=== PATIENT | female | born 1950 | race Caucasian/White ===

== ENCOUNTER 2020-09-07 15:02 | Emergency (ER) | payer MEDICARE, OTHER ==
[2020-09-07 16:20] LABS: BASOPHIL 0.2 % (0-2); EOSINOPHIL 0.6 % (0-7); HCT 39.8 % (37.0-47.0); HGB 13.2 g/dl (12.5-16.0); MCH 30.8 pg (25.0-31.0); MCHC 33.2 g/dL (32.0-36.0); MONOCYTE 4.8 % (0-12); MPV 9.4 fL (6.0-9.5); NEUTROPHIL 87.9 % (41-80); NRBC 0; PLT 144 K/uL (150-400); RBC 4.28 M/uL (4.20-5.40); RDW 12.7 % (11.5-14.0); WBC 11.9 K/uL (4.0-10.5)
[2020-09-07 16:34] LABS: INR 1.13 (0.9-1.2); PROTHROMBIN TIME 13.8 SECONDS (11.4-13.6); PTT 22.5 SECONDS (22.2-34.7)
[2020-09-07 16:36] LABS: D-DIMER 0.56 ug/mLFEU (0.00-0.41)
[2020-09-07 16:38] LABS: ALBUMIN 3.7 g/dL (3.4-5.0); BILIRUBIN - TOTAL 0.5 mg/dL (0.2-1.0); BUN/CREAT RATIO (CALC) 36.2 RATIO; C-REACTIVE PROTEIN 0.6 mg/dL (<=0.90); CREATININE 0.47 mg/dL (0.51-0.95); GLOBULIN (CALCULATION) 4.2 g/dL; POTASSIUM 3.9 mmol/L (3.5-5.1); TOTAL PROTEIN 7.9 g/dL (6.4-8.2)
[2020-09-07 16:42] LABS: LACTIC ACID 0.8 mmol/L (0.4-1.9)
[2020-09-07 17:53] LABS: CORONAVIRUS 2019 SARS-COV-2 NEGATIVE (NEGATIVE); INFLUENZA A NAA NEGATIVE (NEGATIVE)
== END 2020-09-07 18:21 | disposition other institution (70) ==
LOC: FER 15:02
PROVIDERS: Emergency Medicine
DX: I21.4 Non-ST elevation (NSTEMI) myocardial infarction (principal); J43.9 Emphysema, unspecified; Z99.81 Dependence on supplemental oxygen; Z87.891 Personal history of nicotine dependence; Z88.1 Allergy status to other antibiotic agents; Z88.2 Allergy status to sulfonamides; Z88.5 Allergy status to narcotic agent; Z20.822 Contact with and (suspected) exposure to COVID-19
CPT/HCPCS: 36415; 36600; 71045; 71275; 80053; 82803; 83605; 83880; 84484; 85025; 85379; 85610; 85730; 86140; 87040; 93005; J1644; Q9967; U0002

== ENCOUNTER 2021-02-05 14:18 | Emergency (ER) | payer MEDICARE, OTHER ==
[2021-02-05 15:36] LABS: BASOPHIL 0.2 % (0-2); EOSINOPHIL 1.9 % (0-7); HCT 36.7 % (37.0-47.0); HGB 12.1 g/dl (12.5-16.0); LYMPHOCYTE 11.1 % (15-48); MCH 30.2 pg (25.0-31.0); MCV 91.5 fL (78.0-100.0); MONOCYTE 13.1 % (0-12); MPV 9.5 fL (6.0-9.5); NEUTROPHIL 73.1 % (41-80); NRBC 0; PLT 163 K/uL (150-400); RBC 4.01 M/uL (4.20-5.40); RDW 13.1 % (11.5-14.0); WBC 9.1 K/uL (4.0-10.5)
[2021-02-05 16:00] LABS: CKMB 0.9 ng/mL (0.0-3.6)
[2021-02-05 16:43] LABS: ALBUMIN 3.4 g/dL (3.4-5.0); BILIRUBIN - TOTAL 0.5 mg/dL (0.2-1.0); BUN/CREAT RATIO (CALC) 29.3 RATIO; CREATININE 0.58 mg/dL (0.51-0.95); GLOBULIN (CALCULATION) 4.3 g/dL; POTASSIUM 3.8 mmol/L (3.5-5.1); TOTAL PROTEIN 7.7 g/dL (6.4-8.2)
[2021-02-05 16:54] LABS: BILIRUBIN NEGATIVE (NEGATIVE); BLOOD TRACE-INTACT Ery/uL (NEGATIVE); CLARITY CLEAR (CLEAR); COLOR YELLOW (YELLOW); GLUCOSE (U) NORMAL (NORMAL); LEUKOCYTES NEGATIVE Leu/uL (NEGATIVE); NITRITE NEGATIVE (NEGATIVE); PROTEIN NEGATIVE (NEGATIVE); pH 5.5 (5.0-9.0)
[2021-02-05 17:00] LABS: BACTERIA TRACE; MUCOUS TRACE; SQUAMOUS EPITHELIAL CELLS RARE
== END 2021-02-05 17:25 | disposition home or self-care (01) ==
LOC: FER 14:18
PROVIDERS: Emergency Medicine
DX: J44.9 Chronic obstructive pulmonary disease, unspecified (principal); I25.2 Old myocardial infarction; Z95.5 Presence of coronary angioplasty implant and graft; Z88.2 Allergy status to sulfonamides; Z88.5 Allergy status to narcotic agent; Z87.891 Personal history of nicotine dependence; Z88.1 Allergy status to other antibiotic agents
CPT/HCPCS: 36415; 74022; 80053; 81001; 82553; 84484; 85025

== ENCOUNTER 2021-02-25 09:56 | Emergency (ER) | payer MEDICARE, OTHER ==
[~2021-02-25] VITALS: Ht 162.6 cm; Wt 41.3 kg
[2021-02-25 11:25] LABS: BASOPHIL 0.4 % (0-2); EOSINOPHIL 4.3 % (0-7); HCT 40.3 % (37.0-47.0); HGB 12.8 g/dl (12.5-16.0); MCH 29.6 pg (25.0-31.0); MCHC 31.8 g/dL (32.0-36.0); MCV 93.1 fL (78.0-100.0); MONOCYTE 9.6 % (0-12); MPV 10.2 fL (6.0-9.5); NEUTROPHIL 65.1 % (41-80); NRBC 0; PLT 150 K/uL (150-400); RBC 4.33 M/uL (4.20-5.40); RDW 13.2 % (11.5-14.0); WBC 4.9 K/uL (4.0-10.5)
[2021-02-25 12:35] LABS: ALBUMIN 3.6 g/dL (3.4-5.0); BILIRUBIN - TOTAL 0.3 mg/dL (0.2-1.0); BUN/CREAT RATIO (CALC) 23.3 RATIO; CREATININE 0.6 mg/dL (0.51-0.95); GLOBULIN (CALCULATION) 3.9 g/dL; POTASSIUM 4.5 mmol/L (3.5-5.1); TOTAL PROTEIN 7.5 g/dL (6.4-8.2)
== END 2021-02-25 21:50 | disposition other institution (70) ==
LOC: FER 09:56
PROVIDERS: Emergency Medicine
DX: I21.4 Non-ST elevation (NSTEMI) myocardial infarction (principal); I10 Essential (primary) hypertension; J44.9 Chronic obstructive pulmonary disease, unspecified; Z88.2 Allergy status to sulfonamides; Z88.5 Allergy status to narcotic agent; Z88.3 Allergy status to other anti-infective agents; Z20.822 Contact with and (suspected) exposure to COVID-19
CPT/HCPCS: 36415; 36600; 71045; 80053; 82803; 83605; 83880; 84484; 85025; 85379; 85730; 87040; 93005; 94664; 94760; J1644; J2405; J2930; J7030; U0002

== ENCOUNTER 2021-03-15 07:26 | Inpatient (IN) | payer MEDICARE, OTHER ==
[~2021-03-15] VITALS: Ht 162.6 cm; Wt 45.0 kg
[2021-03-15 08:15] LABS: BASOPHIL 0.3 % (0-2); EOSINOPHIL 0.6 % (0-7); HCT 38.1 % (37.0-47.0); HGB 12.4 g/dl (12.5-16.0); LYMPHOCYTE 5.9 % (15-48); MCH 29.7 pg (25.0-31.0); MCHC 32.5 g/dL (32.0-36.0); MCV 91.1 fL (78.0-100.0); MONOCYTE 8.4 % (0-12); MPV 9.6 fL (6.0-9.5); NEUTROPHIL 84.4 % (41-80); NRBC 0; PLT 162 K/uL (150-400); RBC 4.18 M/uL (4.20-5.40); RDW 13.2 % (11.5-14.0); WBC 14.8 K/uL (4.0-10.5)
[2021-03-15 08:25] LABS: INR 1.28 (0.9-1.2); PROTHROMBIN TIME 15.3 SECONDS (11.8-13.4); PTT 26.5 SECONDS (24.4-34.7)
[2021-03-15 08:40] LABS: ALBUMIN 3.3 g/dL (3.4-5.0); BILIRUBIN - TOTAL 0.9 mg/dL (0.2-1.0); BUN/CREAT RATIO (CALC) 20.5 RATIO; CREATININE 0.78 mg/dL (0.51-0.95); GLOBULIN (CALCULATION) 4.3 g/dL; POTASSIUM 3.5 mmol/L (3.5-5.1); TOTAL PROTEIN 7.6 g/dL (6.4-8.2)
[2021-03-15 08:44] LABS: CKMB 1.3 ng/mL (0.0-3.6)
[2021-03-15 09:29] LABS: LACTIC ACID 1.1 mmol/L (0.4-1.9)
[2021-03-15] MEDS ORDERED: ASPIRIN81 MG PO (10:14)
[2021-03-15] MEDS ORDERED: CLOPIDOGREL75 MG PO (10:15)
[2021-03-15] MEDS ORDERED: TRELEGY ELLIPT1 EACH INH (10:16)
[2021-03-15] MEDS ORDERED: LASIX40 MG PO (10:16)
[2021-03-15] MEDS ORDERED: CARVEDILOL3.125 MG PO (10:16)
[2021-03-15] MEDS ORDERED: MONTELUKAST SOD10 MG PO (10:17)
[2021-03-15] MEDS ORDERED: MIRTAZAPINE7.5 MG PO (10:17)
[2021-03-15] MEDS ORDERED: PRAVACHOL20 MG PO (10:17)
[2021-03-15] MEDS ORDERED: PROAIR HFA8.5 GM INH (10:18)
[2021-03-15] MEDS ORDERED: HYDROXYZINE HCL25 MG PO (10:21)
[2021-03-15] MEDS ORDERED: NITROGLYCERIN0.4 MG SL (10:22)
[2021-03-15] MEDS ORDERED: PROLIA60 MG/1 ML IM (10:24)
[2021-03-15 13:29] LABS: BILIRUBIN NEGATIVE (NEGATIVE); BLOOD NEGATIVE Ery/uL (NEGATIVE); CLARITY CLEAR (CLEAR); COLOR YELLOW (YELLOW); GLUCOSE (U) NORMAL (NORMAL); LEUKOCYTES TRACE Leu/uL (NEGATIVE); NITRITE NEGATIVE (NEGATIVE); PROTEIN NEGATIVE (NEGATIVE); SPECIFIC GRAVITY 1.025 (1.001-1.030)
[2021-03-15 13:37] LABS: BACTERIA TRACE; SQUAMOUS EPITHELIAL CELLS RARE
[2021-03-16 04:07] LABS: BASOPHIL 0.1 % (0-2); EOSINOPHIL 0 % (0-7); HCT 34.3 % (37.0-47.0); HGB 11.1 g/dl (12.5-16.0); LYMPHOCYTE 6.5 % (15-48); MCH 29.8 pg (25.0-31.0); MCHC 32.4 g/dL (32.0-36.0); MONOCYTE 1.8 % (0-12); MPV 10.3 fL (6.0-9.5); NRBC 0; PLT 133 K/uL (150-400); RBC 3.73 M/uL (4.20-5.40); RDW 13.2 % (11.5-14.0); WBC 8.2 K/uL (4.0-10.5)
[2021-03-16 04:13] LABS: NEUTROPHIL 91.2 % (41-80)
[2021-03-16 04:24] LABS: BUN/CREAT RATIO (CALC) 31.9 RATIO; CREATININE 0.69 mg/dL (0.51-0.95); MAGNESIUM 2.2 mg/dL (1.8-2.4); POTASSIUM 4.4 mmol/L (3.5-5.1)
[2021-03-17 09:16] LABS: BASOPHIL 0.1 % (0-2); EOSINOPHIL 0 % (0-7); HCT 34.9 % (37.0-47.0); LYMPHOCYTE 4.2 % (15-48); MCH 29.5 pg (25.0-31.0); MCHC 31.5 g/dL (32.0-36.0); MCV 93.6 fL (78.0-100.0); MONOCYTE 1.6 % (0-12); MPV 10.3 fL (6.0-9.5); NEUTROPHIL 93.4 % (41-80); NRBC 0; PLT 149 K/uL (150-400); RBC 3.73 M/uL (4.20-5.40); RDW 13.2 % (11.5-14.0)
[2021-03-17 09:19] LABS: WBC 13.4 K/uL (4.0-10.5)
[2021-03-17 09:28] LABS: BUN/CREAT RATIO (CALC) 32.8 RATIO; CREATININE 0.64 mg/dL (0.51-0.95); MAGNESIUM 2.2 mg/dL (1.8-2.4); PHOSPHORUS 4.1 mg/dL (2.6-4.7); POTASSIUM 3.7 mmol/L (3.5-5.1)
[2021-03-18] MEDS ORDERED: MEDROL 4MG DOSEP4 MG PO ×2 (15:34→15:36)
[2021-03-18] MEDS ORDERED: XANAX0.5 MG PO (15:34)
[2021-03-18] MEDS ORDERED: ZPAK PO ×2 (15:34→15:36)
== END 2021-03-18 16:30 | disposition home health service (06) | DRG 189 ==
LOC: FER 07:26 → FTCU 09:07
PROVIDERS: Emergency Medicine; ADMIT Internal Medicine
DX: J96.01 Acute respiratory failure with hypoxia (principal); I21.A1 Myocardial infarction type 2; J44.1 Chronic obstructive pulmonary disease with (acute) exacerbation; I50.22 Chronic systolic (congestive) heart failure; J44.0 Chronic obstructive pulmonary disease with (acute) lower respiratory infection; Z20.822 Contact with and (suspected) exposure to COVID-19; Z66 Do not resuscitate; J20.9 Acute bronchitis, unspecified; I25.5 Ischemic cardiomyopathy; E78.5 Hyperlipidemia, unspecified; F41.1 Generalized anxiety disorder; M81.0 Age-related osteoporosis without current pathological fracture; E78.00 Pure hypercholesterolemia, unspecified; K21.9 Gastro-esophageal reflux disease without esophagitis; E78.1 Pure hyperglyceridemia; J96.10 Chronic respiratory failure, unspecified whether with hypoxia or hypercapnia; Z95.5 Presence of coronary angioplasty implant and graft; Z87.891 Personal history of nicotine dependence; Z79.82 Long term (current) use of aspirin; Z79.02 Long term (current) use of antithrombotics/antiplatelets; Z79.899 Other long term (current) drug therapy; Z99.81 Dependence on supplemental oxygen; Z88.2 Allergy status to sulfonamides; Z88.5 Allergy status to narcotic agent; Z88.8 Allergy status to other drugs, medicaments and biological substances; Z98.51 Tubal ligation status
CPT/HCPCS: 36415; 36600; 71045; 80048; 80053; 81001; 82553; 82803; 83605; 83735; 83880; 84100; 84145; 84439; 84443; 84484; 85025; 85610; 85730; 87040; 87088; 93005; 94010; 94640; 94667; 94668; 97161; 97166; 97535; G0378; J0456; J0696; J1650; J2920; J2930; J7050; U0002

== ENCOUNTER 2021-08-28 19:52 | Emergency (ER) | payer MEDICARE, OTHER ==
[~2021-08-28 19:52] MED LIST: ASPIRIN81 MG PO; CARVEDILOL3.125 MG PO; CLOPIDOGREL75 MG PO; HYDROXYZINE HCL25 MG PO; LASIX40 MG PO; MEDROL 4MG DOSEP4 MG PO; MIRTAZAPINE7.5 MG PO; MONTELUKAST SOD10 MG PO; NITROGLYCERIN0.4 MG SL; PRAVACHOL20 MG PO; PROAIR HFA8.5 GM INH; PROLIA60 MG/1 ML IM; TRELEGY ELLIPT1 EACH INH; XANAX0.5 MG PO; ZPAK PO
[2021-08-28 20:53] LABS: BASOPHIL 0.2 % (0-2); EOSINOPHIL 3.8 % (0-7); HCT 40.3 % (37.0-47.0); HGB 13.6 g/dl (12.5-16.0); LYMPHOCYTE 17.2 % (15-48); MCH 31.9 pg (25.0-31.0); MCHC 33.7 g/dL (32.0-36.0); MCV 94.4 fL (78.0-100.0); MONOCYTE 10.9 % (0-12); MPV 9.8 fL (6.0-9.5); NEUTROPHIL 67.6 % (41-80); NRBC 0; PLT 152 K/uL (150-400); RBC 4.27 M/uL (4.20-5.40); RDW 12.9 % (11.5-14.0); WBC 6.5 K/uL (4.0-10.5)
[2021-08-28 21:14] LABS: ALBUMIN 4.1 g/dL (3.4-5.0); ALKALINE PHOSHATASE 57 U/L (46-116); ALT 28 U/L (14-59); AST 41 U/L (15-37); BILIRUBIN - TOTAL 0.4 mg/dL (0.2-1.0); BUN 18 mg/dL (7-18); BUN/CREAT RATIO (CALC) 25.7 RATIO; C-REACTIVE PROTEIN <0.20 mg/dL (<=0.90); CHLORIDE 99 mmol/L (98-107); CO2 (BICARBONATE) 33 mmol/L (21-32); GLOBULIN (CALCULATION) 4.2 g/dL; GLUCOSE 88 mg/dL (74-106); POTASSIUM 3.6 mmol/L (3.5-5.1); TOTAL PROTEIN 8.3 g/dL (6.4-8.2)
[2021-08-28 21:42] LABS: INFLUENZA A NAA NEGATIVE (NEGATIVE)
[2021-08-28 21:43] LABS: CORONAVIRUS 2019 SARS-COV-2 POSITIVE (NEGATIVE)
[2021-08-28] MEDS ORDERED: ZPAK PO (22:10)
[2021-08-28] MEDS ORDERED: MEDROL 4MG DOSEP4 MG PO (22:10)
[2021-08-28] MEDS ORDERED: ONDANSETRON ODT4 MG PO (22:10)
== END 2021-08-28 22:46 | disposition home or self-care (01) ==
LOC: FER 19:52
PROVIDERS: Emergency Medicine
DX: U07.1 COVID-19 (principal); J43.9 Emphysema, unspecified; I50.9 Heart failure, unspecified; I25.10 Atherosclerotic heart disease of native coronary artery without angina pectoris; Z99.81 Dependence on supplemental oxygen; Z95.5 Presence of coronary angioplasty implant and graft; Z88.2 Allergy status to sulfonamides; Z88.8 Allergy status to other drugs, medicaments and biological substances
CPT/HCPCS: 36415; 71275; 80053; 83880; 84484; 85025; 86140; J2405; J7030; Q9967; U0002